=== PATIENT | male | born 1975 | race Caucasian/White ===

== ENCOUNTER 2020-10-16 10:07 | Outpatient (REF) | payer OTHER, SELFPAY ==
[2020-10-16 13:44] LABS: MANUAL DIFF FLAG NO
[2020-10-16 13:46] LABS: Basophils Absolute Auto 0.1 X10*3/uL (0.0-0.2); Basophils Percent Auto 0.8 % (0-2); Eosinophils Absolute Auto 0.2 X10*3/uL (0.0-0.4); Eosinophils Percent Auto 2.2 % (0-4); Hematocrit 42.6 % (42-52); Hemoglobin 14.1 g/dl (14.0-18.0); Imm Gran Abs Auto 0.01 X10*3/uL (0.00-0.03); Imm Gran Pct Auto 0.1 % (0.0-0.4); Lymphocytes Absolute Auto 2.6 X10*3/uL (1.2-4.9); Lymphocytes Percent Auto 33.3 % (20-40); Mean Corpuscular HGB Conc 33.1 g/dl (31.0-36.0); Mean Corpuscular Hemoglobin 26.2 pg (27.0-33.0); Mean Corpuscular Volume 79.2 fL (80-98); Mean Platelet Volume 9.2 fL (9.4-12.4); Monocytes Absolute Auto 0.5 X10*3/uL (0.1-1.2); Monocytes Percent Auto 6.4 % (2-11); Neutrophils Absolute Auto 4.5 X10*3/uL (2.0-8.3); Neutrophils Percent Auto 57.2 % (45-73); Platelet Count 388 X10*3/uL (160-400); Red Blood Count 5.38 X10*6/uL (4.60-5.80); Red Cell Distribution Width 13.6 % (11.0-16.0); White Blood Count 7.8 X10*3/uL (4.8-10.8)
[2020-10-16 13:54] LABS: INTERNATIONAL NORM RATIO 1.1 (0.9-1.1); Prothrombin Time 12.5 SEC (10.8-13.0)
[2020-10-16 14:14] LABS: Anion Gap 12 (12-20); Blood Urea Nitrogen 15 mg/dL (9-16); Calcium 9.1 mg/dL (8.4-10.2); Carbon Dioxide 29 mmol/L (22-29); Chloride 102 mmol/L (96-108); Estimated Glomerular Filt Rate > 60; Potassium 4.4 mmol/l (3.3-5.1); Sodium 139 mmol/L (135-145)
[2020-10-16 14:15] LABS: Creatinine Urine 74.74 mg/dL
[2020-10-16 15:36] LABS: Renal w Reflex Lab Use Only Order verified
== END 2020-10-16 10:08 | disposition home or self-care (01) ==
LOC: HO.10HDL 10:07
PROVIDERS: Visit Provider Internal Medicine Nephrology
DX: R80.9 Proteinuria, unspecified (principal); I10 Essential (primary) hypertension
CPT/HCPCS: 36415; 80051; 82043; 82310; 82565; 84100; 84520; 85025; 85610

== ENCOUNTER 2021-04-27 07:11 | Outpatient (REF) | payer OTHER, SELFPAY ==
--- NOTE | ~2021-04-27 | XR_ITS ---
EXAMINATION: XR FINGER, LEFT CLINICAL INFORMATION: Foreign body. COMPARISON: None. TECHNIQUE: PA view of the left hand as well as oblique and lateral views of the left index finger. FINDINGS: No radiopaque foreign body. No abnormal soft tissue calcification. No acute fracture or dislocation. No joint space narrowing or marginal osteophytes. No osseous erosion. XR/XR finger LT min 2V IMPRESSION: No radiopaque foreign body.
[2021-04-27 08:27] LABS: Anion Gap 16 (12-20); Blood Urea Nitrogen 16 mg/dL (9-16); Carbon Dioxide 26 mmol/L (22-29); Chloride 104 mmol/L (96-108); Cholesterol 148 mg/dL; Estimated Glomerular Filt Rate > 60; Glucose Fasting 187 mg/dL (60-99); HDL Cholesterol 30 mg/dL; LDL Cholesterol Calculated 101 mg/dl; Potassium 4.8 mmol/L (3.3-5.1); Sodium 141 mmol/L (135-145); Triglycerides 89 mg/dL
[2021-04-27 08:36] LABS: Creatinine Urine 106.58 mg/dL
[2021-04-27 08:40] LABS: Estimated Average Glucose 223 mg/dL; Hemoglobin A1c % 9.4 %
[2021-04-27 08:50] LABS: Microalbum/Creatinine Ratio Ur 590.1 ug/mg cr
== END 2021-04-27 07:12 | disposition home or self-care (01) ==
LOC: HO.LAB 07:11
PROVIDERS: PCP Family Medicine; Visit Provider Family Medicine
DX: E11.9 Type 2 diabetes mellitus without complications (principal); I10 Essential (primary) hypertension; E78.00 Pure hypercholesterolemia, unspecified
CPT/HCPCS: 36415; 73140; 80051; 80061; 82043; 82565; 82947; 83036; 84520

== ENCOUNTER 2021-10-17 07:48 | Outpatient (REF) | payer OTHER, SELFPAY ==
[2021-10-17 09:12] LABS: Anion Gap 13 (12-20); Blood Urea Nitrogen 19 mg/dL (9-16); Calcium 10.1 mg/dL (8.4-10.2); Carbon Dioxide 28 mmol/L (22-29); Chloride 105 mmol/L (96-108); Estimated Glomerular Filt Rate > 60; Potassium 4.8 mmol/L (3.3-5.1); Sodium 141 mmol/L (135-145)
[2021-10-17 09:18] LABS: Creatinine Urine 97.27 mg/dL; Protein/Creatinine Ratio, Ur 0.75 (<0.2); Total Protein Urine Random 73 mg/dL (<12)
[2021-10-17 13:25] LABS: MANUAL DIFF FLAG NO
[2021-10-17 13:39] LABS: Basophils Percent Auto 0.6 % (0-2); Eosinophils Absolute Auto 0.1 X10*3/uL (0.0-0.4); Eosinophils Percent Auto 1.7 % (0-4); Hematocrit 46.7 % (42.0-52.0); Imm Gran Abs Auto 0.01 X10*3/uL (0.00-0.03); Imm Gran Pct Auto 0.2 % (0.0-0.4); Lymphocytes Absolute Auto 1.7 X10*3/uL (1.2-4.9); Lymphocytes Percent Auto 26.1 % (20-40); Mean Corpuscular HGB Conc 32.1 g/dl (31.0-36.0); Mean Corpuscular Hemoglobin 25.8 pg (27.0-33.0); Mean Corpuscular Volume 80.2 fL (80.0-98.0); Mean Platelet Volume 9.3 fL (9.4-12.4); Monocytes Absolute Auto 0.5 X10*3/uL (0.1-1.2); Monocytes Percent Auto 7.7 % (2-11); Neutrophils Absolute Auto 4.3 x10*3/uL (2.0-8.3); Neutrophils Percent Auto 63.7 % (45-73); Platelet Count 411 X10*3/uL (160-400); Red Blood Count 5.82 X10*6/uL (4.60-5.80); Red Cell Distribution Width 14.1 % (11.0-16.0); White Blood Count 6.7 X10*3/uL (4.8-10.8)
[2021-10-17 13:56] LABS: Estimated Average Glucose 171 mg/dL; Hemoglobin A1c % 7.6 %
[2021-10-17 14:07] LABS: Alanine Aminotransferase 33 U/L (0-40); Albumin Level 4.6 g/dL (3.5-5.0); Alkaline Phosphatase 95 U/L (39-117); Anion Gap 13 (12-20); Aspartate Amino Transferase 15 U/L (5-37); Bilirubin Total 0.4 mg/dL (0.0-1.0); Blood Urea Nitrogen 19 mg/dL (9-16); Calcium 10.2 mg/dL (8.4-10.2); Carbon Dioxide 29 mmol/L (22-29); Chloride 105 mmol/L (96-108); Cholesterol 178 mg/dL; Estimated Glomerular Filt Rate > 60; Glucose Random 171 mg/dL (60-115); HDL Cholesterol 35 mg/dL; LDL Cholesterol Calculated 120 mg/dl; Potassium 4.8 mmol/L (3.3-5.1); Sodium 142 mmol/L (135-145); Total Protein 7.8 g/dL (6.5-8.0); Triglycerides 115 mg/dL
[2021-10-17 14:20] LABS: Thyroid Stimulating Hormone 0.91 uIU/mL (0.32-4.0)
[2021-10-17 14:37] LABS: Creatinine Urine 110.99 mg/dL
[2021-10-17 14:46] LABS: Microalbum/Creatinine Ratio Ur 617.1 ug/mg cr
== END 2021-10-17 07:49 | disposition home or self-care (01) ==
LOC: HO.LAB 07:48
PROVIDERS: PCP Internal Medicine; Visit Provider Internal Medicine Nephrology
DX: Z00.00 Encounter for general adult medical examination without abnormal findings (principal); E11.9 Type 2 diabetes mellitus without complications; I10 Essential (primary) hypertension; R80.8 Other proteinuria
CPT/HCPCS: 36415; 80051; 80053; 80061; 82043; 82310; 82565; 83036; 84156; 84443; 84520; 85025

== ENCOUNTER 2022-02-06 07:40 | Outpatient (REF) | payer OTHER, SELFPAY ==
[2022-02-06 08:10] LABS: MANUAL DIFF FLAG NO
[2022-02-06 08:38] LABS: Basophils Percent Auto 0.5 % (0-2); Eosinophils Absolute Auto 0.2 X10*3/uL (0.0-0.4); Eosinophils Percent Auto 1.8 % (0-4); Hematocrit 42.7 % (42.0-52.0); Hemoglobin 14.1 g/dl (14.0-18.0); Imm Gran Abs Auto 0.01 X10*3/uL (0.00-0.03); Imm Gran Pct Auto 0.1 % (0.0-0.4); Lymphocytes Absolute Auto 2.2 X10*3/uL (1.2-4.9); Mean Corpuscular Hemoglobin 26.5 pg (27.0-33.0); Mean Corpuscular Volume 80.1 fL (80.0-98.0); Mean Platelet Volume 8.9 fL (9.4-12.4); Monocytes Absolute Auto 0.7 X10*3/uL (0.1-1.2); Monocytes Percent Auto 8.1 % (2-11); Neutrophils Absolute Auto 5.3 x10*3/uL (2.0-8.3); Neutrophils Percent Auto 63.5 % (45-73); Platelet Count 364 X10*3/uL (160-400); Red Blood Count 5.33 X10*6/uL (4.60-5.80); Red Cell Distribution Width 13.9 % (11.0-16.0); White Blood Count 8.4 X10*3/uL (4.8-10.8)
[2022-02-06 08:55] LABS: Estimated Average Glucose 166 mg/dL; Hemoglobin A1c % 7.4 %
[2022-02-06 09:11] LABS: Alanine Aminotransferase 38 U/L (0-40); Albumin Level 4.5 g/dL (3.5-5.0); Alkaline Phosphatase 102 U/L (39-117); Anion Gap 14 (12-20); Aspartate Amino Transferase 21 U/L (5-37); Bilirubin Total 0.3 mg/dL (0.0-1.0); Blood Urea Nitrogen 20 mg/dL (9-16); Carbon Dioxide 27 mmol/L (22-29); Chloride 105 mmol/L (96-108); Cholesterol 109 mg/dL; Estimated Glomerular Filt Rate > 60; Glucose Random 143 mg/dL (60-115); HDL Cholesterol 31 mg/dL; LDL Cholesterol Calculated 61 mg/dl; Potassium 4.8 mmol/L (3.3-5.1); Sodium 141 mmol/L (135-145); Total Protein 7.6 g/dL (6.5-8.0); Triglycerides 88 mg/dL
[2022-02-06 09:33] LABS: Thyroid Stimulating Hormone 0.89 uIU/mL (0.32-4.0)
[2022-02-06 10:41] LABS: Creatinine Urine 80.04 mg/dL; Microalbum/Creatinine Ratio Ur 489.7 ug/mg cr
== END 2022-02-06 07:41 | disposition home or self-care (01) ==
LOC: HO.LAB 07:40
PROVIDERS: PCP Internal Medicine; Visit Provider Internal Medicine
DX: Z00.00 Encounter for general adult medical examination without abnormal findings (principal); D50.9 Iron deficiency anemia, unspecified; I10 Essential (primary) hypertension; E11.65 Type 2 diabetes mellitus with hyperglycemia
CPT/HCPCS: 36415; 80053; 80061; 82043; 83036; 84443; 85025

== ENCOUNTER 2022-05-21 12:09 | Outpatient (REF) | payer OTHER, SELFPAY ==
[2022-05-21 13:58] LABS: Alanine Aminotransferase 21 U/L (0-40); Albumin Level 4.5 g/dL (3.5-5.0); Alkaline Phosphatase 102 U/L (39-117); Anion Gap 15 (12-20); Aspartate Amino Transferase 15 U/L (5-37); Bilirubin Total 0.3 mg/dL (0.0-1.0); Blood Urea Nitrogen 20 mg/dL (9-16); Calcium 9.4 mg/dL (8.4-10.2); Carbon Dioxide 26 mmol/L (22-29); Chloride 102 mmol/L (96-108); Estimated Glomerular Filt Rate 49; Glucose Random 228 mg/dL (60-115); Potassium 4.1 mmol/L (3.3-5.1); Sodium 139 mmol/L (135-145); Total Protein 7.7 g/dL (6.5-8.0)
[2022-05-21 14:11] LABS: Estimated Average Glucose 160 mg/dL; Hemoglobin A1c % 7.2 %
[2022-05-21 15:06] LABS: Creatinine Urine 87.59 mg/dL; Microalbum/Creatinine Ratio Ur 170.1 ug/mg cr
== END 2022-05-21 12:10 | disposition home or self-care (01) ==
LOC: HO.LAB 12:09
PROVIDERS: PCP Internal Medicine; Visit Provider Internal Medicine
DX: E11.69 Type 2 diabetes mellitus with other specified complication (principal); E78.00 Pure hypercholesterolemia, unspecified; I10 Essential (primary) hypertension; R80.8 Other proteinuria
CPT/HCPCS: 36415; 80053; 82043; 83036

== ENCOUNTER 2022-09-29 10:53 | Outpatient (REF) | payer OTHER, SELFPAY ==
[2022-09-29 14:04] LABS: Anion Gap 14 (12-20); Blood Urea Nitrogen 21 mg/dL (9-16); Calcium 10.2 mg/dL (8.4-10.2); Carbon Dioxide 30 mmol/L (22-29); Chloride 101 mmol/L (96-108); Estimated Glomerular Filt Rate > 60; Potassium 4.5 mmol/L (3.3-5.1); Sodium 140 mmol/L (135-145)
== END 2022-09-29 10:54 | disposition home or self-care (01) ==
LOC: HO.10HDL 10:53
PROVIDERS: Visit Provider Internal Medicine Nephrology
DX: I10 Essential (primary) hypertension (principal); R80.8 Other proteinuria
CPT/HCPCS: 36415; 80051; 82310; 82565; 84520

== ENCOUNTER 2022-10-01 07:32 | Outpatient (REF) | payer OTHER, SELFPAY ==
[2022-10-01 08:44] LABS: Creatinine, mg/dL 68.25; Protein mg/dL 20 mg/dL
[2022-10-01 14:46] LABS: Protein 24 Hr Urine 595 mg/Day (<150); Total Volume 24 Hour Urine 2975 mL
== END 2022-10-01 07:33 | disposition home or self-care (01) ==
LOC: HO.LNP 07:32
PROVIDERS: Visit Provider Internal Medicine Nephrology
DX: R80.8 Other proteinuria (principal); I10 Essential (primary) hypertension
CPT/HCPCS: 84156

== ENCOUNTER 2023-02-13 12:24 | Outpatient (REF) | payer OTHER, SELFPAY ==
[2023-02-16 09:58] LABS: TSpotTB Invalid (Negative)
== END 2023-02-13 12:25 | disposition home or self-care (01) ==
LOC: HO.10HDL 12:24
PROVIDERS: Visit Provider Internal Medicine
DX: Z00.00 Encounter for general adult medical examination without abnormal findings (principal); E11.9 Type 2 diabetes mellitus without complications; E78.00 Pure hypercholesterolemia, unspecified; I10 Essential (primary) hypertension; R80.8 Other proteinuria
CPT/HCPCS: 36415; 86481

== ENCOUNTER 2023-02-23 12:59 | Outpatient (REF) | payer OTHER, SELFPAY ==
[2023-02-26 07:13] LABS: TS Negative Control Passed; TS Panel A 0; TS Panel B 0; TS Positive Control Passed; TSpotTB Negative (Negative)
== END 2023-02-23 13:00 | disposition home or self-care (01) ==
LOC: HO.LAB 12:59
PROVIDERS: PCP Internal Medicine; Visit Provider Internal Medicine
DX: Z11.1 Encounter for screening for respiratory tuberculosis (principal)
CPT/HCPCS: 36415; 86481

== ENCOUNTER 2023-08-29 07:21 | Outpatient (REF) | payer OTHER, SELFPAY ==
[2023-08-29 07:40] LABS: MANUAL DIFF FLAG NO
[2023-08-29 08:31] LABS: Basophils Absolute Auto 0.1 X10*3/uL (0.0-0.2); Basophils Percent Auto 0.9 % (0-2); Eosinophils Absolute Auto 0.2 X10*3/uL (0.0-0.4); Eosinophils Percent Auto 2.6 % (0-4); Hemoglobin 14.2 g/dl (14.0-18.0); Imm Gran Abs Auto 0.02 X10*3/uL (0.00-0.03); Imm Gran Pct Auto 0.3 % (0.0-0.4); Lymphocytes Absolute Auto 2.3 X10*3/uL (1.2-4.9); Lymphocytes Percent Auto 28.2 % (20-40); Mean Corpuscular Hemoglobin 26.2 pg (27.0-33.0); Mean Corpuscular Volume 79.5 fL (80.0-98.0); Mean Platelet Volume 9.3 fL (9.4-12.4); Monocytes Absolute Auto 0.7 X10*3/uL (0.1-1.2); Monocytes Percent Auto 8.4 % (2-11); Neutrophils Absolute Auto 4.8 x10*3/uL (2.0-8.3); Neutrophils Percent Auto 59.6 % (45-73); Platelet Count 399 X10*3/uL (160-400); Red Blood Count 5.41 X10*6/uL (4.60-5.80); Red Cell Distribution Width 13.9 % (11.0-16.0)
[2023-08-29 08:38] LABS: Estimated Average Glucose 183 mg/dL
[2023-08-29 08:56] LABS: Alanine Aminotransferase 26 U/L (0-40); Albumin Level 4.3 g/dL (3.5-5.0); Alkaline Phosphatase 94 U/L (39-117); Anion Gap 12 (12-20); Aspartate Amino Transferase 14 U/L (5-37); Bilirubin Total 0.3 mg/dL (0.0-1.0); Blood Urea Nitrogen 20 mg/dL (9-16); Calcium 9.7 mg/dL (8.4-10.2); Carbon Dioxide 28 mmol/L (22-29); Chloride 106 mmol/L (96-108); Cholesterol 116 mg/dL (<200); Estimated Glomerular Filt Rate > 60; Glucose Random 156 mg/dL (60-115); HDL Cholesterol 26 mg/dL (>40); LDL Cholesterol Calculated 73 mg/dL (<100); Potassium 4.6 mmol/L (3.3-5.1); Sodium 141 mmol/L (135-145); Total Protein 7.7 g/dL (6.5-8.0); Triglycerides 85 mg/dL (<150)
[2023-08-29 09:14] LABS: Creatinine Urine 112.17 mg/dL; Microalbum/Creatinine Ratio Ur 111.4 ug/mg cr (<30)
== END 2023-08-29 07:22 | disposition home or self-care (01) ==
LOC: HO.LAB 07:21
PROVIDERS: PCP Internal Medicine; Visit Provider Internal Medicine
DX: E11.65 Type 2 diabetes mellitus with hyperglycemia (principal); E78.00 Pure hypercholesterolemia, unspecified; I10 Essential (primary) hypertension; R80.8 Other proteinuria
CPT/HCPCS: 36415; 80053; 80061; 82043; 82570; 83036; 85025

== ENCOUNTER 2023-12-19 07:54 | Outpatient (REF) | payer BC, SELFPAY ==
[2023-12-19 08:54] LABS: Estimated Average Glucose 157 mg/dL; Hemoglobin A1c % 7.1 % (<6.0)
[2023-12-19 09:07] LABS: Alanine Aminotransferase 26 U/L (0-40); Albumin Level 4.5 g/dL (3.5-5.0); Alkaline Phosphatase 102 U/L (39-117); Anion Gap 14 (12-20); Aspartate Amino Transferase 14 U/L (5-37); Bilirubin Total 0.4 mg/dL (0.0-1.0); Blood Urea Nitrogen 21 mg/dL (9-16); Calcium 9.9 mg/dL (8.4-10.2); Carbon Dioxide 30 mmol/L (22-29); Chloride 101 mmol/L (96-108); Estimated Glomerular Filt Rate > 60; Glucose Random 131 mg/dL (60-115); Potassium 4.2 mmol/L (3.3-5.1); Sodium 141 mmol/L (135-145)
== END 2023-12-19 07:55 | disposition home or self-care (01) ==
LOC: HO.LAB 07:54
PROVIDERS: PCP Internal Medicine; Visit Provider Internal Medicine
DX: E11.65 Type 2 diabetes mellitus with hyperglycemia (principal); E78.00 Pure hypercholesterolemia, unspecified; I10 Essential (primary) hypertension; R80.8 Other proteinuria
CPT/HCPCS: 36415; 80053; 83036

== ENCOUNTER 2024-04-09 08:40 | Outpatient (REF) | payer BC, SELFPAY ==
[2024-04-09 09:37] LABS: Estimated Average Glucose 169 mg/dL; Hemoglobin A1c % 7.5 % (<6.0)
[2024-04-09 09:55] LABS: Alanine Aminotransferase 22 U/L (0-40); Albumin Level 4.3 g/dL (3.5-5.0); Alkaline Phosphatase 96 U/L (39-117); Anion Gap 14 (12-20); Aspartate Amino Transferase 14 U/L (5-37); Bilirubin Total 0.3 mg/dL (0.0-1.0); Blood Urea Nitrogen 16 mg/dL (9-16); Calcium 9.9 mg/dL (8.4-10.2); Carbon Dioxide 27 mmol/L (22-29); Chloride 106 mmol/L (96-108); Cholesterol 128 mg/dL (<200); Estimated Glomerular Filt Rate > 60; Glucose Random 143 mg/dL (60-115); HDL Cholesterol 28 mg/dL (>40); LDL Cholesterol Calculated 90 mg/dL (<100); Potassium 4.8 mmol/L (3.3-5.1); Sodium 142 mmol/L (135-145); Total Protein 7.6 g/dL (6.5-8.0); Triglycerides 54 mg/dL (<150)
[2024-04-09 10:38] LABS: Creatinine Urine 91.35 mg/dL; Microalbum/Creatinine Ratio Ur 212.3 ug/mg cr (<30)
== END 2024-04-09 08:41 | disposition home or self-care (01) ==
LOC: HO.LAB 08:40
PROVIDERS: PCP Internal Medicine; Visit Provider Internal Medicine
DX: E11.9 Type 2 diabetes mellitus without complications (principal); E78.00 Pure hypercholesterolemia, unspecified; I10 Essential (primary) hypertension; R80.8 Other proteinuria
CPT/HCPCS: 36415; 80053; 80061; 82043; 82570; 83036

== ENCOUNTER 2024-07-30 07:11 | Outpatient (REF) | payer BC, SELFPAY ==
[2024-07-30 08:22] LABS: Alanine Aminotransferase 34 U/L (0-40); Albumin Level 4.5 g/dL (3.5-5.0); Alkaline Phosphatase 100 U/L (39-117); Anion Gap 14 (12-20); Aspartate Amino Transferase 16 U/L (5-37); Bilirubin Total 0.4 mg/dL (0.0-1.0); Blood Urea Nitrogen 17 mg/dL (9-16); Calcium 10.3 mg/dL (8.4-10.2); Carbon Dioxide 29 mmol/L (22-29); Chloride 103 mmol/L (96-108); Cholesterol 102 mg/dL (<200); Estimated Glomerular Filt Rate > 60; Glucose Random 144 mg/dL (60-115); HDL Cholesterol 27 mg/dL (>40); LDL Cholesterol Calculated 60 mg/dL (<100); Potassium 4.6 mmol/L (3.3-5.1); Sodium 141 mmol/L (135-145); Triglycerides 75 mg/dL (<150)
[2024-07-30 09:05] LABS: Estimated Average Glucose 166 mg/dL; Hemoglobin A1C 212.0881 umol/L; Hemoglobin A1c % 7.4 % (<6.0); Total Hemoglobin (HGBA1C) 3704.8141 umol/L
== END 2024-07-30 07:12 | disposition home or self-care (01) ==
LOC: HO.LAB 07:11
PROVIDERS: PCP Internal Medicine; Visit Provider Internal Medicine
DX: Z00.00 Encounter for general adult medical examination without abnormal findings (principal); E11.65 Type 2 diabetes mellitus with hyperglycemia; E78.00 Pure hypercholesterolemia, unspecified; I10 Essential (primary) hypertension; R80.8 Other proteinuria
CPT/HCPCS: 36415; 80053; 80061; 83036

== ENCOUNTER 2024-10-07 15:13 | Outpatient (AMB) | payer OTHER, SELFPAY ==
--- NOTE | 2024-10-07 15:16 | HO.NEPHOV ---
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 He had been going through a lot of personal life stressors. He is a diabetic. He claims to be compliant with his medications now. He is on SGLT2 inhibitor as well as ARB. He denies any pedal edema. His weight has been stable. He denies any excessive intake of nonsteroidal anti-inflammatories. He never had a renal biopsy. [facility] Medical History (Updated 10/30/24 @ 18:50 by Boston Fleming MD) Type 2 diabetes mellitus Hypertension Chronic kidney disease Family History Mother Diabetes Hypertension Cancer Kidney disease Father Cancer Diabetes Hypertension Social History Alcohol intake: never Patient Tobacco Use Status: Never used Tobacco Review of Systems Const All systems reviewed & are unremarkable except as noted in HPI and below Physical Exam Vital Signs: Last Vital Signs Pulse 91 10/07/24 15:20 BP 110/70 10/07/24 15:20 Pulse Ox 97 10/07/24 15:20 Oxygen Delivery Method Room Air 10/07/24 15:20 BMI result Body Mass Index 36.8 Const General: comfortable and no acute distress Orientation/consciousness: patient oriented x3 HEENT Head: Yes normocephalic Mouth: Normal oral and palatal mucosa present Eyes EOM: EOMs intact bilaterally Neck Neck: Yes supple Resp Auscultation: clear to auscultation bilaterally Cardio Jugular venous distension: no JVD Rate: regular rate GI Palpation (GI): Soft to palpation Auscultation: normal bowel sounds General: Yes no CVA tenderness Back/Spine/Pelvis Back: no CVA tenderness Skin General skin exam: no rashes or lesions noted Neuro General: patient oriented x3 and moves all extremities Extrem General: Yes no pedal edema Results Reviewed Nephrology Results: Hgb 14.2 g/dl (14.0-18.0) 08/29/23 WBC 8.0 X10*3/uL (4.8-10.8) 08/29/23 Plt Count 399 X10*3/uL (160-400) 08/29/23 Sodium 141 mmol/L (135-145) 07/30/24 Potassium 4.6 mmol/L (3.3-5.1) 07/30/24 Chloride 103 mmol/L (96-108) 07/30/24 Carbon Dioxide 29 mmol/L (22-29) 07/30/24 BUN 17 mg/dL (9-16) H 07/30/24 Creatinine 1.06 mg/dL (0.5-1.4) 07/30/24 Calcium 10.3 mg/dL (8.4-10.2) H 07/30/24 Urine Creatinine 91.35 mg/dL 04/09/24 Protein/Creatinin Ratio 0.75 (<0.2) H 10/17/21 Assessment & Plan Assessment & Plan (1) Hypertension: Code(s): I10 - Essential (primary) hypertension Category: Medical Qualifiers: Hypertension type: primary hypertension Qualified Code(s): I10 - Essential (primary) hypertension (2) Proteinuria: Code(s): R80.9 - Proteinuria, unspecified Category: Medical Qualifiers: Proteinuria type: other Qualified Code(s): R80.8 - Other proteinuria Plan Long has proteinuric renal disease. He needs to lose some weight. He is diabetic. He is on Jardiance as well as ARB. His blood pressure is at goal. I have ordered follow-up blood work as well as urine protein creatinine ratio. He avoids nonsteroidal anti-inflammatories and maintain good hydration. I did not make any medication changes. If his proteinuria worsens I shall consider doing a renal biopsy. Answered all questions. Follow-up given in 6 months unless he needs to be seen early due to any active renal issues. Orders: Orders Blood Urea Nitrogen 6 Months R80.9 - Proteinuria, unspecified, I10 - Essential (primary) hypertension Electrolytes 6 Months R80.9 - Proteinuria, unspecified, I10 - Essential (primary) hypertension Creatinine 6 Months R80.9 - Proteinuria, unspecified, I10 - Essential (primary) hypertension Protein Creatinine Ratio, Ur 6 Months R80.9 - Proteinuria, unspecified, I10 - Essential (primary) hypertension Coding Level of Care Code Est Pt Level 4 (01714) Diagnoses Primary hypertension I10 Hypertension type: primary hypertension Other proteinuria R80.8 Proteinuria type: other
[2024-10-07 15:20] VITALS: BP 110/70; PULSE 91; O2SAT 97; BMI 36.8
== END 2024-10-07 15:47 | disposition home or self-care (01) ==
PROVIDERS: PCP Internal Medicine; Visit Provider Internal Medicine Nephrology
DX: I10 Essential (primary) hypertension (principal); R80.8 Other proteinuria
CPT/HCPCS: 99214

== ENCOUNTER 2025-04-29 07:15 | Outpatient (REF) | payer OTHER, SELFPAY ==
--- OUTSIDE RECORDS SUMMARY | 2025-04-29 07:17 | XMS_ITS | Clinical Summary ---
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 Name Role Phone Unavailable Primary Care Provider Unavailabl e Social History Tobacco Use Types Packs/Day Years Used Date Smoking Tobacco: Never Assessed Sex and Gender Information Value Date Recorded Sex Assigned at Not on file Legal Sex Male 8:34 PM EST Gender Identity Not on file Sexual Orientation Not on file Plan of Treatment Health Maintenance Due Date Last Done Comments DTaP,Tdap,and Td Vaccines (1 - Tdap) 1994 Hepatitis B Vaccines (1 of 3 - 19+ 3-dose series) 1994 COVID-19 Vaccine (2023-2 5 season) 2024 Influenza Vaccine (#1) 2025 HIB Vaccines Aged Out No longer eligi ble based on patient's age to complete this topic HPV Vaccines Aged Out No longer eligi ble based on patient's age to complete this topic Hepatitis A Vaccines Aged Out No long er eligible based on patient's age to complete this topic IPV Vaccines Aged Out No longer eligi ble based on patient's age to complete this topic MMR Vaccines Aged Out No longer eligi ble based on patient's age to complete this topic Meningococcal ACWY Vaccine Aged Out N o longer eligible based on patient's age to complete this topic Meningococcal B Vaccine Aged Out No l onger eligible based on patient's age to complete this topic Pneumococcal Vaccine: Pediat rics (0 to 5 Years) and At-Risk Patients (6 to 49 Years) Aged Out No longer eligible b ased on patient's age to complete this topic RSV Immunization Patients Un davonte 20 months Aged Out No longer eligible b ased on patient's age to complete this topic Varicella Vaccines Aged Out No longer eligible based on patient's age to complete this topic
--- OUTSIDE RECORDS SUMMARY | 2025-04-29 07:17 | XMS_ITS | Clinical Summary ---
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 [employer] Name Role Phone Holli Gupta MD Primary Care Provider Allergies No known active allergies Medications losartan (COZAAR) 100 MG tablet TAKE 1 TABLET BY MOUTH EVERY DAY 90 tablet 4 07/23/2021 Active Janumet 50-1000 MG per tablet Take 1 tablet by mouth 2 (two) times a day 06/26/2022 Active atorvastatin (LIPITOR) 40 MG tablet Take 1 tablet by mouth 1 (one) time each day 06/26/2022 Active Active Problems Problem Noted Date Diagnosed Date Essential hypertension 04/18/2021 Proteinuria 04/18/2021 Family History Medical History Relation Comments Cancer Father Diabetes Father Hypertension Father Cancer Mother Diabetes Mother Hypertension Mother Relation Status Comments Father Alive Mother Alive Social History Tobacco Use Types Packs/Day Years Used Date Smoking Tobacco: Never Smokeless Tobacco: Never Tobacco Cessation:Counseling Given: Not Answered Alcohol Use Standard Drinks/Week Comments No 0 (1 standard drink = 0.6 oz pur e alcohol) Sex and Gender Information Value Date Recorded Sex Assigned at Not on file Legal Sex Male 5:01 PM EST Gender Identity Not on file Sexual Orientation Not on file Last Filed Vital Signs Vital Sign Reading Time Taken Comments Blood Pressure 112/80 10/01/2022 4:21 PM EST Pulse 89 10/01/2022 4:21 PM EST Temperature - - Respiratory Rate - - Oxygen Saturation 98% 08/23/2021 1:06 PM EDT Inhaled Oxygen Concentration - - Weight 107 kg (235 lb 12.8 oz) 10/01/2022 4:21 P M EST Height 172.7 cm (5' 8 ) 07/11/2020 12:00 PM EDT Body Mass Index 35.85 07/11/2020 12:00 PM EDT Plan of Treatment Health Maintenance Due Date Last Done Comments Hepatitis B Vaccine (1 of 3 - 19+ 3-dose series) 08/20 Pneumococcal Vaccine: Peds ( 0 to 5 Years) and At-Risk Patients (6 to 49 Years) (1 of 2 - PCV) 1994 Colorectal Cancer Screening: Annual FOBT 2024 Colorectal Cancer Screening: Colonoscopy 2024 Colorectal Cancer Screening: Sigmoidoscopy 2024 Influenza Vaccine (#1) 2025 Insurance Care Teams [employer] Relationship Specialty Start Date End Date Holli Gupta MD [address] [place] [address] PCP - General Internal Medicine 07/09/22
[2025-04-29 08:08] LABS: Anion Gap 12 (12-20); Blood Urea Nitrogen 16 mg/dL (9-16); Carbon Dioxide 31 mmol/L (22-29); Chloride 102 mmol/L (96-108); Estimated Glomerular Filt Rate > 60; Potassium 4.1 mmol/L (3.3-5.1); Sodium 141 mmol/L (135-145)
[2025-04-29 08:10] LABS: Protein/Creatinine Ratio, Ur 0.37 (<0.2); Total Protein Urine Random 32 mg/dL (<12)
== END 2025-04-29 07:16 | disposition home or self-care (01) ==
LOC: HO.LAB 07:15
PROVIDERS: PCP Internal Medicine; Visit Provider Internal Medicine Nephrology
DX: I10 Essential (primary) hypertension (principal); R80.9 Proteinuria, unspecified
CPT/HCPCS: 36415; 80051; 82565; 82570; 84156; 84520

== ENCOUNTER 2025-05-03 15:22 | Outpatient (AMB) | payer OTHER, SELFPAY ==
--- OUTSIDE RECORDS SUMMARY | 2025-05-03 15:38 | XMS_ITS | Clinical Summary ---
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
--- OUTSIDE RECORDS SUMMARY | 2025-05-03 15:38 | XMS_ITS | Clinical Summary ---
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 Primary Care Provider Unavailabl e Social History Tobacco Use Types Packs/Day Years Used Date Smoking Tobacco: Never Assessed Sex and Gender Information Value Date Recorded Sex Assigned at Not on file Legal Sex Male 7:21 AM EDT Gender Identity Not on file Sexual Orientation Not on file Plan of Treatment Health Maintenance Due Date Last Done Comments Colorectal Cancer: COLONOSCO PY Screening every 10 yrs (or Modifier) 1975 Depression: Screening Annual ly using PHQ-2/9 in Adults 18 yrs or above (or HM Modifier)([facility]) 1993 Hepatitis C Virus Infection in Adolescents and Adults: Screening (or Modifier) ([facility]) 1993 [facility] Screening Reminder: [place] for all adults ([facility]) 1993 Tobacco Smoking Cessation: i n Adults excluding Women: Behavioral and Pharmacotherapy Interventions ([facility]) 1993 DTaP/Tdap/Td Vaccines ([facility]) (1 - Tdap) 1994 Colorectal Cancer Screening 45 -75 Yrs (or HM Modifier) 2020 Colorectal Cancer: FLEXIBLE SIGMOIDOSCOPY Screening every 5 yrs 2020 Colorectal Cancer: Fecal Immunochemical Test (FIT) Annually [facility] 2020 Colorectal Cancer: High-sens itivity gFOBT Screening Annually [facility] 2020 Colorectal Cancer: Stool Col oguard Screening every 3 yrs 2020 Colorectal Cancer:CT Colonog dylan Screening every 5 yrs 2020 COVID-19 Vaccine Screening: Initial Series and Booster Status ([facility]) ( season) 2024 Flu Vaccination: Yearly for ages 18mos through 64 years (or Modifier)([facility]) 05/19/2025 Zoster/Shingles Vaccine Seri es Screening: Adults aged 18+ yrs (or HM Modifiers)([facility]) (1 of 2) 2025 Pneumococcal Vaccination Scr eening: Pts 0-19 & 19-49 yrs of age ([facility]) Aged Out No longer eligible based on patient's age to complete this topic Medical Devices Not on file Insurance [facility] Care Teams Scaling Machine Operator Relationship Specialty Start Date End Date No, Pcp, PRENATAL TEACHER N/A Do not use PCP - General Family Medicine 08/17/20
--- OUTSIDE RECORDS SUMMARY | 2025-05-03 15:38 | XMS_ITS | Clinical Summary ---
Author Organization [facility] Address [address] [address] [place] [address] Phone Care Team Providers Care Sampling Theory Teacher Name Role Phone Holli Gupta MD Primary [...] Influenza Vaccine (#1) 2025 Insurance Care Teams Sampling Theory Teacher Relationship Specialty Start Date End Date Holli Gupta MD [address] [place] [address] PCP - General Internal Medicine 07/09/22
--- NOTE | 2025-05-03 15:42 | HO.NEPHOV ---
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 He had been going through a lot of personal life stressors. He is a diabetic. He claims to be compliant with his medications now. He is on SGLT2 inhibitor as well as ARB. He denies any pedal edema. His weight has been stable. He denies any excessive intake of nonsteroidal anti-inflammatories. He never had a renal biopsy. [facility] Medical History (Updated 10/30/24 @ 18:50 by Boston Fleming MD) Type 2 diabetes mellitus Hypertension Chronic kidney disease Family History Mother Diabetes Hypertension Cancer Kidney disease Father Cancer Diabetes Hypertension Social History Alcohol intake: never Patient Tobacco Use Status: Never used Tobacco Review of Systems Const All systems reviewed & are unremarkable except as noted in HPI and below Physical Exam Const General: comfortable and no acute distress Orientation/consciousness: patient oriented x3 HEENT Head: Yes normocephalic Mouth: Normal oral and palatal mucosa present Eyes EOM: EOMs intact bilaterally Neck Neck: Yes supple Resp Auscultation: clear to auscultation bilaterally Cardio Jugular venous distension: no JVD Rate: regular rate GI Palpation (GI): Soft to palpation Auscultation: normal bowel sounds General: Yes no CVA tenderness Back/Spine/Pelvis Back: no CVA tenderness Skin General skin exam: no rashes or lesions noted Neuro General: patient oriented x3 and moves all extremities Extrem General: Yes no pedal edema Results Reviewed Nephrology Results: Hgb, (14.0-18.0) 14.2 g/dl 08/29/23 WBC, (4.8-10.8) 8.0 X10*3/uL 08/29/23 Plt Count, (160-400) 399 X10*3/uL 08/29/23 Sodium, (135-145) 141 mmol/L 04/29/25 Potassium, (3.3-5.1) 4.1 mmol/L 04/29/25 Chloride, (96-108) 102 mmol/L 04/29/25 Carbon Dioxide, (22-29) 31 mmol/L H 04/29/25 BUN, (9-16) 16 mg/dL 04/29/25 Creatinine, (0.5-1.4) 1.09 mg/dL 04/29/25 Calcium, (8.4-10.2) 10.3 mg/dL H 07/30/24 Urine Creatinine 86.17 mg/dL 04/29/25 Protein/Creatinin Ratio, (<0.2) 0.37 H 04/29/25 Assessment & Plan Assessment & Plan (1) Hypertension: Code(s): I10 - Essential (primary) hypertension Category: Medical Qualifiers: Hypertension type: primary hypertension Qualified Code(s): I10 - Essential (primary) hypertension (2) Proteinuria: Code(s): R80.9 - Proteinuria, unspecified Category: Medical Qualifiers: Proteinuria type: other Qualified Code(s): R80.8 - Other proteinuria Plan Long has proteinuric renal disease. He needs to lose some weight. He is diabetic. He is on Jardiance as well as ARB. His blood pressure is at goal. I have ordered follow-up blood work as well as urine protein creatinine ratio. He avoids nonsteroidal anti-inflammatories and maintain good hydration. I did not make any medication changes. If his proteinuria worsens I shall consider doing a renal biopsy. Answered all questions. Follow-up given in 8 months unless he needs to be seen early due to any active renal issues. Orders: Orders Blood Urea Nitrogen 8 Months I10 - Essential (primary) hypertension, R80.8 - Other proteinuria Creatinine 8 Months I10 - Essential (primary) hypertension, R80.8 - Other proteinuria Protein Creatinine Ratio, Ur 8 Months I10 - Essential (primary) hypertension, R80.8 - Other proteinuria Electrolytes 8 Months I10 - Essential (primary) hypertension, R80.8 - Other proteinuria Coding Level of Care Code Est Pt Level 4 (19456) Diagnoses Primary hypertension I10 Hypertension type: primary hypertension Other proteinuria R80.8 Proteinuria type: other
[2025-05-03 15:43] VITALS: BP 104/60; BMI 37.2
== END 2025-05-03 16:00 | disposition home or self-care (01) ==
LOC: HO.HKA 15:23
PROVIDERS: PCP Internal Medicine; Visit Provider Internal Medicine Nephrology
DX: I10 Essential (primary) hypertension (principal); R80.8 Other proteinuria
CPT/HCPCS: 99214

== ENCOUNTER 2025-05-20 07:47 | Outpatient (REF) | payer OTHER, SELFPAY ==
[2025-05-20 09:18] LABS: Microalbum/Creatinine Ratio Ur 205.7 ug/mg cr (<30)
[2025-05-20 09:18] LABS: Alanine Aminotransferase 28 U/L (0-40); Albumin Level 4.9 g/dL (3.5-5.0); Alkaline Phosphatase 117 U/L (39-117); Anion Gap 14 (12-20); Aspartate Amino Transferase 22 U/L (5-37); Blood Urea Nitrogen 20 mg/dL (9-16); Calcium 10.2 mg/dL (8.4-10.2); Carbon Dioxide 31 mmol/L (22-29); Chloride 101 mmol/L (96-108); Cholesterol 107 mg/dL (<200); Estimated Glomerular Filt Rate > 60; HDL Cholesterol 23 mg/dL (>40); Potassium 4.6 mmol/L (3.3-5.1); Sodium 141 mmol/L (135-145); Total Protein 8.4 g/dL (6.5-8.0); Triglycerides 77 mg/dL (<150)
[2025-05-20 09:22] LABS: Thyroid Stimulating Hormone 1.33 uIU/mL (0.32-4.0)
[2025-05-20 10:04] LABS: Hemoglobin A1C 292.7027 umol/L; Total Hemoglobin (HGBA1C) 4259.6274 umol/L
== END 2025-05-20 07:48 | disposition home or self-care (01) ==
LOC: HO.LAB 07:47
PROVIDERS: PCP Internal Medicine; Visit Provider Internal Medicine
DX: I10 Essential (primary) hypertension (principal); E11.9 Type 2 diabetes mellitus without complications; E78.00 Pure hypercholesterolemia, unspecified; R80.8 Other proteinuria
CPT/HCPCS: 36415; 80053; 80061; 82043; 82570; 83036; 84443